=== PATIENT | female | born 1950 | race Caucasian/White ===

== ENCOUNTER 2016-12-02 19:09 | Emergency (ER) | payer OTHER ==
[2016-12-02 19:24] VITALS: TEMP 98.6; BMI 31.0
[2016-12-02] MEDS ORDERED: NS 1,000 ML IV ONE (20:16)
[2016-12-02] MEDS ORDERED: ONDANSETRON HCL 4 MG/2 ML VIAL IV ONE (20:16)
[2016-12-02] MEDS ORDERED: HYDROmorphone 1 MG INJECTION IV ONE (20:16)
[2016-12-02 20:54] LABS: AUTOMATED EOSINOPHIL 4.5 % (0-5); AUTOMATED LYMPH 24.8 % (17-44); AUTOMATED MONOCYTE 10.6 % (3-10); AUTOMATED NEUTROPHIL 59.1 % (45-76); MPV 7.1 fL (7.4-10.4)
--- NOTE | 2016-12-02 20:55 | EDPRACDOC ---
- General Information Chief Complaint: Female Urogenital Problems Stated Complaint: URINATING BLOOD HX KIDNEY STONE Time Seen by Provider: 12/02/16 20:07 Information Source: Patient Mode Of Arrival: Car Home Medications: Home Medications Tamsulosin HCl [Flomax] 0.4 mg PO DAILY 12/02/16 Allergies/Adverse Reactions: Allergies Allergy/AdvReac Type Severity Reaction Status Date / Time watermelon Allergy Hives* Uncoded 02/04/14 07:41 - History of Present Illness Onset: one week HPI: PT PRESENTS TODAY WITH LOWER ABD PRESSURE X WEEKS. PT STATES THAT SHE FOLLOWS DR. QUIROZ FOR RECENT KIDNEY STONE. STATES THAT TODAY SHE BECAME CONCERNED BECAUSE SHE NOTICED MORE BLOOD IN HER URINE AND WORSENING, INTERMITTENT LOWER ABD PRESSURE. PT STATES PAIN ONLY 3/10 AT THIS TIME. DENIES FEVER, N/V/D. NO APPARENT DISTRESS. Pain Began: Reports: Spontaneous Pain Location: Reports: Abdomen Pain Severity: Mild Pain Quality: Reports: Aching : No Oral Intake: Normal Urinary Output: Normal Modifying Factors: improves with: Nothing Relevant History of: Reports: Urolithiasis Associated Signs and Symptoms: Reports: Frequency, Abdominal Pain, Nausea, None (HEMATURIA) ED Past Medical History - History Reviewed Yes Nurses notes reviewed and agree except as marked - Patient Medical History Cardiac History: Reports: Hypertension Respiratory History: Reports: Asthma GI/ History: Reports: Kidney Stones Psychological History: Denies: Depression Systemic History: Reports: Cancer Surgical History: Reports: Hysterectomy, Tonsillectomy/Adnoidectomy - Family Medical History Reports: Hypertension (mother), Cancer (mother, colon dad, lung), Stroke ( mother (TIA)), Cardiac Disorders (father). Denies: Diabetes - Social Medical History Smoking Status: Never smoker EDM Review of Systems - Review of Systems ROS Negative Except as Marked: Yes All systems reviewed and were negative except as marked Constitutional: No Symptoms Reported Respiratory: No Symptoms Reported Cardiovascular: No Symptoms Reported Gastrointestinal: Nausea, Pain Genitourinary: Frequency, Hematuria Neurological: No Symptoms Reported Musculoskeletal: No Symptoms Reported Integumentary: No Symptoms Reported - Physical Exam Constitutional: Alert (Awake), No apparent distress Oriented to: Time, Person, Place Last recorded Vital Signs: Last Vital Signs Temp 98.6 F 12/02/16 19:21 Pulse 101 12/02/16 19:21 Resp 20 12/02/16 19:21 BP 181/86 H 12/02/16 19:21 Pulse Ox 98 12/02/16 19:21 Oxygen Pulse Oxygen Saturation 98 O2 Device Room Air Oxygen Flow Rate Fraction of Inspired Oxygen ( FIO2) - HEENT Head: Normal Eye Exam: Normal Neck: Normal, Denies Pain, Midline - Respiratory/Cardiovascular Respiratory: Normal - CTA Cardiovascular: Normal - GI Auscultation: Normal Palpation: Normal Tenderness: Mild, RLQ, LLQ, Suprapubic Whaley's Sign: Negative - Bladder: Tender - Musculoskeletal Back: Normal Extremities: Normal - Integumentary Skin: Normal Lymphatics: Normal - Neurologic Cerebellar: Normal Mood Description: Normal Thought: Coherent Perception: Normal - Re-evaluation Re-evaluation 1 Re-evaluation Time: 21:31 NO PAIN WHILE HERE. PT TO CONTINUE FOLLOW UP. - Results 12/02/16 20:40 12/02/16 20:40 Decision Time to Discharge: 21:31 - Departure Disposition: Home Condition: Good Final Diagnosis: Hematuria Instructions: Kidney Stones (ED) Education/Counseling Given To: Patient, Family Member Education/Counseling Given Regarding: Diagnosis, Treatment, Follow Up Referrals: Santos Vela MD [Primary Care Provider] - One Week Additional Instructions: CONTINUE FOLLOW UP WITH DR. QUIROZ.
--- NOTE | 2016-12-02 20:56 | DIRPT ---
CLINICAL DATA: Low abdominal pain, known 3 mm right renal stone with hematuria for 1 week EXAM: ABDOMEN - 1 VIEW COMPARISON: 11/29/2016 FINDINGS: Known 3 mm stone previously noted to be within the proximal right ureter on 11/29/2016 CT scan not visualized by radiograph. Nonobstructive bowel gas pattern noted. IMPRESSION: Renal stone not visualized. Electronically Signed By: Luis Anne M.D. On: 12/02/2016 20:53
[2016-12-02 21:00] LABS: BLOOD UREA NITROGEN 15 MG/DL (7-17); CALCIUM 9.3 MG/DL (8.4-10.2); CALCULATED OSMOLALITY 274 MOs/Kg (270-290); CHLORIDE 104 mEq/L (98-107); GLUCOSE 95 MG/DL (70-99); SODIUM LEVEL 142 mEq/L (137-146); TOTAL PROTEIN 6.9 G/DL (6.3-8.2)
[2016-12-02 21:28] LABS: LEUKOCYTES/URINE TRACE (NEGATIVE); NITRITE/URINE NEG (NEGATIVE); URINE OCCULT BLOOD 3+ (NEG/TRACE)
[2016-12-02 21:34] LABS: RBC/URINE 30-40 (0-5)
[2016-12-02 21:50] VITALS: BP 186/74; PULSE 91
== END 2016-12-02 21:47 | disposition home or self-care (01) ==
LOC: ED 19:09
DX: R31.9 Hematuria, unspecified (principal)
CPT/HCPCS: 36415; 74000; 80053; 81001; 85025; 99283; J1170; J2405